=== PATIENT | female | born 1980 | race Caucasian/White ===

== ENCOUNTER 2018-04-25 10:47 | Emergency (ER) | payer MEDICAID ==
[~2018-04-25] VITALS: Ht 157.5 cm; Wt 86.2 kg
[2018-04-25 11:58] LABS: BASOPHILS # (AUTO) 0.12 x10^3/uL (0-0.1); BASOPHILS % (AUTO) 1 % (0-1); EOSINOPHILS # (AUTO) 0.31 x10^3/uL (0-0.4); EOSINOPHILS % (AUTO) 4 % (1-7); LYMPHOCYTES # (AUTO) 2.52 x10^3/uL (1-3.4); LYMPHOCYTES % (AUTO) 29 % (22-44); MD NO; MEAN CORPUSCULAR HEMOGLOBIN 28.8 pg (27.0-34.8); MEAN CORPUSCULAR HGB CONC 33.6 g/dL (32.4-35.8); MEAN CORPUSCULAR VOLUME 85.8 fL (80-100); MEAN PLATELET VOLUME 10.2 fL (7.4-10.4); MONOCYTES # (AUTO) 0.51 x10^3/uL (0.2-0.8); MONOCYTES % (AUTO) 6 % (2-9); NEUTROPHILS # (AUTO) 5.27 x10^3/uL (1.8-6.8); NEUTROPHILS % (AUTO) 60 % (42-75); PLATELET COUNT 266 x10^3/uL (130-400); RED BLOOD COUNT 4.91 x10^6/uL (3.82-5.3); RED CELL DISTRIBUTION WIDTH 13.4 % (9.6-15.2)
[2018-04-25 12:02] LABS: MICROSCOPIC NOT IND
[2018-04-25 12:03] LABS: CULTURE INDICATED? NO
[2018-04-25 12:12] LABS: ALBUMIN 3.4 g/dL (3.4-5.0); ANION GAP 5 mmol/L (5-15); CALCIUM 8.5 mg/dL (8.5-10.1); CHLORIDE 108 mmol/L (98-107); CREATININE 0.73 mg/dL (0.55-1.02)
[2018-04-25 14:35] VITALS: BP 122/70
== END 2018-04-25 14:37 | disposition home or self-care (01) ==
LOC: ED 12:55
DX: D25.2 Subserosal leiomyoma of uterus (principal); E66.9 Obesity, unspecified
CPT/HCPCS: 36415; 76830; 80048; 81003; 82040; 84703; 85025; 99285

== ENCOUNTER 2019-10-18 10:17 | Emergency (ER) | payer MEDICAID, OTHER ==
[~2019-10-18] VITALS: Ht 157.5 cm; Wt 86.0 kg
[2019-10-18 10:37] VITALS: BP 149/88
--- NOTE | 2019-10-18 10:57 | NUR ---
PT C/O THROAT PAIN, WITH ASSOCIATED HEADACHES AND STIFF NECK UPON WAKING IN THE MORNINGS. NO COUGH, NO FEVERS. PT TOOK A PHOTO OF HER THROAT THIS MORNING, SHOWS ERYTHEMA, SWELLING, AND SMALL WHITE NODULES. DENIES ANY OTHER NEEDS OR CONCERNS AT THIS TIME. CALL LIGHT IN REACH. CHART UP FOR REVIEW.
[2019-10-18] MEDS ORDERED: DEXAMETHASONE 4 MG TABLET ONE (11:09)
[2019-10-18] MEDS ORDERED: DEXAMETHASONE 4 MG TABLET PO ONE (11:30)
== END 2019-10-18 11:22 | disposition home or self-care (01) ==
LOC: ED 11:16
DX: J02.0 Streptococcal pharyngitis (principal); F17.200 Nicotine dependence, unspecified, uncomplicated
CPT/HCPCS: 87081; 87880; 99283